=== PATIENT | female | born 1970 | race Caucasian/White ===

== ENCOUNTER 2025-02-05 08:35 | Outpatient (REF) | payer OTHER, SELFPAY ==
--- NOTE | ~2025-02-05 | CT_ITS ---
EXAMINATION: CT ABDOMEN AND PELVIS WITH CONTRAST CLINICAL INFORMATION: Abnormal uterine and vaginal bleeding, unspecified Pyelonephritis COMPARISON: Ultrasound of the kidneys on February 05, 2025. Ultrasound of the pelvis on February 05, 2025. TECHNIQUE: Multidetector volumetric images were obtained from the superior aspect of the liver through the pubic symphysis following administration 85 ml of Omnipaque 350 intravenous contrast. Sagittal and coronal reformatted images were obtained on the technologist's workstation. Oral contrast: No This CT examination was performed using dose optimization techniques as appropriate, variously including the following: *Automated exposure control *Adjustment of mA and/or kV according to patient size (this includes techniques or standardized protocols for targeted exams where dose is matched to indication/reason for exam; i.e. extremities or head) *Use of iterative reconstruction technique FINDINGS: LOWER CHEST: No lung consolidation. No pleural effusion. LIVER: Hepatomegaly measuring 22.7 cm. Diffuse hypodensity compatible with hepatic steatosis. No focal lesions. GALLBLADDER AND BILIARY TREE: No biliary ductal dictation. The gallbladder is unremarkable with no evidence of radiopaque gallstones, gallbladder wall thickening, or obvious pericholecystic inflammatory changes. PANCREAS: Unremarkable. SPLEEN: No splenomegaly. No focal lesions. ADRENAL GLANDS: No nodules. KIDNEYS AND URETERS: No renal stones or focal renal lesions. No hydronephrosis or perinephric stranding. GASTROINTESTINAL TRACT: Small hiatal hernia. Stomach is decompressed. Normal long appendix in the right lower quadrant/lower central abdomen. No bowel distention. PERITONEUM/RETROPERITONEUM: No free fluid or free air. ABDOMINAL WALL: Fat-containing umbilical hernia. LYMPH NODES: No lymphadenopathy. VASCULAR: No abdominal aortic aneurysm. PELVIC VISCERA: Urinary bladder is decompressed, without intravesical stones. Uterus appears unremarkable. Uterine cervix is not well evaluated. Unremarkable appearance of probable bilateral ovaries. OSSEOUS STRUCTURES: No acute or suspicious osseous abnormality. Focal sclerotic and cystic changes in bilateral sacroiliac joints. Degenerative changes along the spine is more prominent at L5-S1. CT/CT abdomen pelvis w IV con IMPRESSION: 1. No acute abnormality in the abdomen/pelvis. 2. No renal stones, hydronephrosis or perirenal fatty stranding on either side. 3. Uterus is not well evaluated on the current examination. 4. Hepatomegaly with hepatic steatosis. Fleischner guidelines were followed. Electronically signed by: Owen Garcia MD 02/05/2025 10:56 AM [facility]
--- NOTE | ~2025-02-05 | US_ITS ---
EXAMINATION: US KIDNEY BILATERAL HISTORY: abn vaginal bleeding, pelvic and perineal pain TECHNIQUE: Real-time grayscale ultrasound imaging of the kidneys was performed and images were reviewed. COMPARISON: There are no prior studies available for comparison. FINDINGS: Right kidney: The right kidney measures 10.3 x 3.7 x 5.7 cm. Renal parenchymal echotexture and thickness are normal. There are no masses. There is no hydronephrosis or renal calculi. Left Kidney: The left kidney measures 11.5 x 6.0 x 5.9 cm. Renal parenchymal echotexture and thickness are normal. There are no masses. There is no hydronephrosis or renal calculi. US/US renal BI IMPRESSION: Unremarkable renal ultrasound. Electronically signed by: Juan Jesus MD 02/05/2025 09:48 AM [facility]
--- NOTE | ~2025-02-05 | US_ITS ---
EXAMINATION: US PELVIS CLINICAL INFORMATION: abn vaginal bleeding, pelvic and perineal pain COMPARISON: None available. TECHNIQUE: Ultrasound of the pelvis is performed using both transabdominal and transvaginal transducers along with Doppler. Transvaginal imaging is performed due to inadequate visualization transabdominally. And abdominal exam is very limited due to empty bladder. FINDINGS: Uterus: The uterus is anteverted and measures 6.6 x 2.8 x 3.8 cm. The double wall endometrial thickness is 2 mm. No endometrial fluid or mass. The uterus is smooth in contour and has normal myometrial echogenicity. No visible fibroid. Heterogeneous appearance to the cervix, question representing heterogeneous fluid in the endocervical canal or cervicitis. Adnexa: Right ovary measures 2.4 x 1.2 x 1.1 cm. Normal Left ovary measures not seen. No pelvic fluid. US/US pelvic and transvaginal IMPRESSION: Limited exam. Normal-appearing uterus and endometrium. Heterogeneous appearance of the cervix/question heterogeneous fluid in the endocervical canal or cervicitis. Correlation with physical exam recommended. Normal right ovary. Left ovary not seen. Electronically signed by: Anny Urbina MD 02/05/2025 10:15 AM EST
--- OUTSIDE RECORDS SUMMARY | 2025-02-05 08:43 | XMS_ITS | Encounter Summary ---
Author Organization [facility] Address [address] [place] [address] Care Team Providers Care Printing Specialist Name Role Phone Balbina Frias APRN Primary Care Provider + [phone] Encounter Details Date Type Department Care Team (Late st Contact Info) Description 04/10/2021 Documentation Encounter [facility] [address] [place] [phone] [place] [address] [place] [address] [id number] Social History Tobacco Use Types Packs/Day Years Used Date Smoking Tobacco: Never Smokeless Tobacco: Never Alcohol Use Standard Drinks/Week Comments Never 0 (1 standard drink = 0.6 oz pur e alcohol) Comments Unknown Sex and Gender Information Value Date Recorded Sex Assigned at Female 03/22/2021 7:01 AM EST Legal Sex Female 5:05 PM EST Gender Identity Female 03/22/2021 7:01 AM EST Sexual Orientation Straight 03/22/2021 7: 01 AM EST documented as of this encounter Plan of Treatment Not on file documented as of this encounter Visit Diagnoses Diagnosis Essential hypertension Unspecified essential hypertension documented in this encounter Care Teams Printing Specialist Relationship Specialty Start Date End Date Balbina Frias APRN [address] [address] [place], [place] [id number] PCP - General Nurse Practitioner 03/20/23 documented as of this encounter
--- OUTSIDE RECORDS SUMMARY | 2025-02-05 08:43 | XMS_ITS | Encounter Summary ---
Author Organization [facility] Address [address] [id number] Care Team Providers Care Smalltalk Developer Name Role Phone Balbina Frias APRN Primary Care Provider + [phone] Encounter Details Date Type Department Care Team (Late st Contact Info) Description 05/09/2023 Prep For Surgery [facility] Med Digestive Disease - [facility] [address] [place] [address] Juju Arias APRN [address] [place] [address] Screening for colon cancer Social History Tobacco Use Types Packs/Day Years Used Date Smoking Tobacco: Never Passive Smoke Exposure: Never Smokeless Tobacco: Never Alcohol Use Standard Drinks/Week Comments Never 0 (1 standard drink = 0.6 oz pur e alcohol) Education Answer Date Recorded What is the highest level of school you have completed or the highest degree you have received? 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
--- OUTSIDE RECORDS SUMMARY | 2025-02-05 08:43 | XMS_ITS | Clinical Summary ---
Author Organization [facility] Address [address] [place] [address] Care Team Providers Care Rental Clerk Name Role Phone FriasBalbina Marck HUGHES Primary Care Provider + [phone] Allergies Active Allergy Reactions Criticality Noted Date Comments Covid-19 (Mrna) Vaccine Delirium,Nausea And Vomiting,Other (See Comments),Palpitations ,Photosensitivity,Seiz ures,Shortness Of Breath High 05/19/2020 Doxycycline Other (See Comments) 03/28/2021 Feeling unwell Fish Allergy Anaphylaxis High 03/28/2021 Peanut Anaphylaxis High 03/28/2021 Medications aspirin 81 MG Oral Tablet Chewable Chew 81 mg daily. Active Ventolin HFA 108 (90 Base) MCG/ACT Inhalation Aerosol SolutionIndication s:Dyspnea, unspecified type Inhale 2 (two) puffs every 6 hours as needed for wheezing or shortness of breath. 8.5 g 1 2 Active sodium chloride (OCEAN) 0.65 % Nasal SolutionIndication s:COVID-19 2 (two) sprays by Nasal route as needed for congestion. 15 mL 2 Active cetirizine (ZyrTEC) 10 MG Oral TabletIndications: COVID-19 Take 1 (one) tablet by mouth daily for 30 days. 30 tablet 2 Active sucralfate (CARAFATE) 1 GM/10ML Oral SuspensionIndicati ons:Midepigastric pain Take 10 mLs by mouth 4 times daily. 420 mL 1 2 Active mometasone (NASONEX) 50 MCG/ACT Nasal SuspensionIndicati ons:COVID-19 SPRAY 2 (TWO) SPRAYS IN EACH NOSTRIL DAILY. 17 g 5 2 Active hydrOXYzine HCl (ATARAX) 25 MG Oral Tablet Take 1 (one) tablet by mouth 3 times daily as needed for itching. 30 tablet 3 Active EPINEPHrine 0.3 MG/0.3ML Injection Solution Auto-injector 1 Active nitroGLYCERIN (NITROSTAT) 0.4 MG Sublingual Tablet SublingualIndicati ons:Chest pain, unspecified type,Angina pectoris,Coronary vasospasm Place 1 (one) tablet under the tongue every 5 minutes as needed for chest pain. 25 tablet 12 4 Active lisinopril (ZESTRIL) 40 MG Oral TabletIndications: Essential hypertension Take 1 (one) tablet by mouth daily. 90 tablet 3 4 Active hydroCHLOROthiazid e (HYDRODIURIL) 25 MG Oral Tablet TAKE 1 TABLET BY MOUTH EVERY DAY 90 tablet 3 4 Active omeprazole (PriLOSEC) 40 MG Oral Capsule Delayed ReleaseIndications :Midepigastric pain TAKE 1 CAPSULE BY MOUTH EVERY DAY 90 capsule 4 4 Active meloxicam (MOBIC) 15 MG Oral TabletIndications: Lumbar back pain with radiculopathy affecting lower extremity Take 1 (one) tablet by mouth daily. MUST BE SEEN BY PROVIDER TO DISCUSS FURTHER REFILLS. 30 tablet 4 Active carvedilol (COREG) 3.125 MG Oral TabletIndications: Myocarditis due to COVID-19 virus TAKE 1 (ONE) TABLET BY MOUTH 2 TIMES DAILY 180 tablet 3 4 Active thyroid (Dexter Thyroid) 30 MG Oral TabletIndications: Other specified hypothyroidism Take 1 (one) tablet by mouth daily. NO FURTHER REFILLS UNTIL SEEN BY PROVIDER. 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 Arthritis of left knee 03/28/2021 Hypothyroidism 10/23/2019 Obesity 10/23/2019 Resolved Problems Problem Noted Date Diagnosed Date Resolved Date Abnormal stress test 04/18/2021 022 Overview (04/18/2021): Added automatically from request for surgery [id number] Immunizations Immunization Administration Dates Next Due ADACEL, BOOSTRIX, Tdap Vacci ne, (7 yo and older), IM (LEN=346) 07/24/2019,10/21/2014 DT vaccine, (less than 7 y.o.) IM (CVX=28) 07/12 Hepatitis B Vaccine (Adult 3 -dose or 11-15YR 2-dose) IM (CVX=43) 06/28/2000 IPOL (6W & OLDER) 0.5 ML IM / SUBCUT VIAL 2000 Family History Medical History Relation Comments Autism Brother Hypertension Brother Kidney Failure Brother Colon Cancer Father Hypertension Father Breast Cancer Maternal Grandmother Hypertension Maternal Grandmother Stroke Mother Breast Cancer Sister Diabetes Sister Hypertension Sister Relation Status Comments Brother Alive Father Alive Maternal Grandmother Mother Sister Alive Social History Tobacco Use Types Packs/Day Years Used Date Smoking Tobacco: Never Passive Smoke Exposure: Never Smokeless Tobacco: Never Tobacco Cessation:Counseling Given: Not Answered Alcohol Use Standard Drinks/Week Comments Never 0 [...] 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 [employer] Not on file Not on f ile Not on file Last Filed Vital Signs Vital Sign Reading Time Taken Comments Blood Pressure 143/67 05/10/2023 3:09 PM EST Pulse 66 05/10/2023 3:09 PM EST Temperature 36 C (96.8 F) 05/10/2023 3:09 PM EST Respiratory Rate 16 01/11/2022 8:43 AM EDT Oxygen Saturation 97% 05/10/2023 3:09 PM EST Inhaled Oxygen Concentration - - Weight 101.2 kg (223 lb) 05/10/2023 3:09 PM EST Pt declined Height 170.2 cm (5' 7 ) 05/10/2023 3:09 PM EST Body Mass Index 34.93 05/10/2023 3:09 PM EST Plan of Treatment Health Maintenance Due Date Last Done Comments CT Colonography 1970 FIT-DNA 1970 FIT-Fecal Immunochemical Test 1970 FOBT-Fecal Occult Blood Test 1970 Hepatitis C Screening 1970 Sigmoidoscopy 1970 [facility] Pap Smear 1991 Hepatitis B Vaccine (2 of 3 - 19+ 3-dose series) 07/26/2000 06/28/2000 Polio Vaccine (2 of 3 - Adult catch-up series) 07/26/2000 06/28/2000 Colon Cancer Screening 2015 Colonoscopy 2015 Pneumococcal Vaccine (50+ yrs) (1 of 1 - PCV) 2020 Zoster Vaccine (1 of 2) 2020 Basic Metabolic Panel 04/18/2024 04/18/2023 , 01/11/2022, 06/05/2021, Additional history exists Lipid Profile 04/18/2024 04/18/2023, 03/30/2021 SARS-CoV-2 (COVID-19) (1 - 2024- season) 2024 Breast Cancer Screening (Mammogram) 06/16/2025 06/17/2023 DTaP,Tdap,and Td Vaccines (4 - Td or Tdap) 07/23/2029 07/24/2019, 10/21/2014, 07/12/2000 HIB Vaccine Aged Out No longer eligi ble based on patient's age to complete this topic HPV Vaccine Aged Out No longer eligi ble based on patient's age to complete this topic Hepatitis A Vaccine Aged Out No longe r eligible based on patient's age to complete this topic Influenza Vaccine Discontinued Meningococcal ACWY Aged Out No longer eligible based on patient's age to complete this topic Meningococcal B Aged Out No longer el igible based on patient's age to complete this topic Rotavirus Vaccine Aged Out No longer eligible based on patient's age to complete this topic Procedures Procedure Name Priority Date/Time Associated Diagnosis Comments CECY SCREENING WITH DONG Routine 06/17/2023 8:59 AM EDT Breast cancer screening by mammogram COMPREHENSIVE METABOLIC PANEL Routine 04/18/2023 12:36 PM EST Essential hypertension LIPID PANEL Routine 04/18/2023 12:36 PM EST Essential hypertension from Last 3 Months or Most Recently Relevant to Health Maintenance Results * CECY Screening with Dong (06/17/2023 8:59 AM EDT) Anatomical Region Laterality Modality Breast N/A Mammography 06/17/2023 10:1 6 AM EDT Impressions 06/17/2023 10:23 AM EDT No mammographic evidence to indicate malignancy. Follow-up of any palpable lesion should be based on clinical grounds regardless of mammographic findings and should not delay intervention for a clinically significant abnormality. BI-RADS: 1. Negative. RECOMMENDATION : Routine screening annual mammogram. Narrative 06/17/2023 10:23 AM EDT HISTORY: Asymptomatic screening study in a 53-year-old female with no personal history of breast cancer. There is a history of a maternal aunt, paternal grandmother, and sister with breast cancer. There is a history of a father with colon cancer. EXAM: [facility] SCREENING WITH DONG. Digital images of both breasts acquired in craniocaudad and oblique mediolateral projections were reviewed with CAD. Tomosynthesis was utilized for this study. C view was utilized. PRIOR STUDY: Exams from 08/09/2010 through 08/21/2017. FINDINGS: Breast parenchyma: Scattered fibroglandular densities There is a stable parenchymal pattern in both breasts. There is no significant interval change. There are no suspicious masses, malignant group of microcalcifications, skin thickening, or architectural distortion in either breast. Олег Brown MD RAD [facility] ORDERABLES Final Re sult * (ABNORMAL) Lipid Panel (04/18/2023 12:36 PM EST) Cholesterol, Total 207(H) 165 - 199 MG/DL 04/18/2023 3:28 PM EST [facility] Comment: Reference Range Summary Desirable: <200 Borderline elevated: 200-239 Elevated: =>240 Triglycerides 68 55 - 149 MG/DL 04/18/2023 3:28 PM EST [facility] Comment: Reference Range Summary Normal: <150 Borderline high: 150-199 High: 200-499 Very high: =>500 HDL 65(H) 40 - <60 MG/DL 04/18/2023 3:28 PM EST [facility] Comment: Reference Range Summary Low: <40 Acceptable: 40-59 High: =>60 LDL Calculated 130 MG/DL 04/18/2023 3:28 PM EST [facility] NON-HDL Cholesterol 142 MG/DL(CALC ) 04/18/2023 3:28 PM EST [facility] Comment: Reference Range Summary Desirable: less than 130 High: 160 to 189 Very high: greater than or equal to 190 Blood Venipuncture / Unknown 04/18/2023 12:36 PM EST 04/18/2023 12:36 PM EST us Balbina Frias MOLD INJECTOR BLOOD ORDERABLES Final Resul t [facility] [address] [place] [address] * (ABNORMAL) Comprehensive Metabolic Panel (04/18/2023 12:36 PM EST) Sodium 139 136 - 145 MMOL/L 04/18/2023 3:28 PM EST [facility] Potassium 4.1 3.3 - 5.1 MMOL/L 04/18/2023 3:28 PM EST [facility] Chloride 100 98 - 107 MMOL/L 04/18/2023 3:28 PM EST [facility] CO2 28 22 - 30 MMOL/L 04/18/2023 3:28 PM EST [facility] Urea Nitrogen 9 6 - 21 MG/DL 04/18/2023 3:28 PM EST [facility] Creatinine 1.17(H) 0.38 - 1.02 mg/dL 04/18/2023 3:28 PM EST [facility] BUN/Creatinine Ratio 7.7 (CALC) 04/18/2023 3:28 PM EST [facility] Glucose 81 65 - 99 MG/DL 04/18/2023 3:28 PM EST [facility] Calcium 10.1 8.4 - 10.2 MG/DL 04/18/2023 3:28 PM EST [facility] Total Protein 8.5(H) 6.4 - 8.3 G/DL 04/18/2023 3:28 PM EST [facility] Albumin 4.4 3.5 - 5.2 G/DL 04/18/2023 3:28 PM EST [facility] Calc Total Globulin 4.1 G/DL 04/18/2023 3:28 PM EST [facility] Albumin/Globulin Ratio 1.1 (CALC) 04/18/2023 3:28 PM EST [facility] Total Bilirubin 0.5 0.0 - 1.0 MG/DL 04/18/2023 3:28 PM EST [facility] Alkaline Phosphatase 64 33 - 133 IU/L 04/18/2023 3:28 PM EST [facility] AST 24 0 - 37 IU/L 04/18/2023 3:28 PM EST [facility] ALT 10 0 - 35 IU/L 04/18/2023 3:28 PM EST [facility] Anion Gap 11 8 - 16 MMOL/L 04/18/2023 3:28 PM EST [facility] EGFR (CKD-EPI) 56(L) >=60 ML/MIN/1. 73M2 04/18/2023 3:28 PM EST [facility] Comment:Calculation based on the Chronic Kidney Disease Epidemiology Collaboration (CKD-EPI) equation refit without adjustment for race Blood Venipuncture / Unknown 04/18/2023 12:36 PM EST 04/18/2023 12:36 PM EST us Balbina Frias MOLD INJECTOR BLOOD ORDERABLES Final Resul t [facility] [address] [place] [address] from Last 3 Months or Most Recently Relevant to Health Maintenance Insurance [employer] HMO/POS Care Teams Rental Clerk Relationship Specialty Start Date End Date Balbina Frias APRN [address] [place] [address] PCP - General Nurse Practitioner 03/20/23
--- OUTSIDE RECORDS SUMMARY | 2025-02-05 08:43 | XMS_ITS | Clinical Summary ---
Author Organization [facility] Address [facility] Domains Income [facility] [address] [place], [place] [id number] Phone Care Team Providers Care Spray Unit Feeder Name Role Phone Pcp, Unknown Primary Care Provider Unavailabl e Encounters Date Type Department Care Team Description 01/13/2025 1:19 PM EDT - 01/13/2025 11:59 PM EDT Hospital Encounter [facility] [address] [place] [address] Laine Arreola PA Discharge Disposition: Home or Self Care 01/13/2025 Transcribe Orders [facility] [address] [place] [address] Laine Arreola PA Abnormal electrocardiogram (Primary Dx) 01/13/2025 Transcribe Orders [facility] [address] [place] [address] Laine Arreola PA from Last 3 Months Social History Tobacco Use Types Packs/Day Years Used Date Smoking Tobacco: Never Assessed Education Answer Date Recorded Are you interested in more education? Not on brennan e 01/13/2025 Are you concerned about learning? Not on file 01/13/2025 No 01/13/2025 No 01/13/2025 Digital Access Answer Date Recorded No 01/13/2025 No 01/13/2025 Reliable internet access at home? Not on file 01/13/2025 Device with a working camera? Not on file Comments Unknown Sex and Gender Information Value Date Recorded Sex Assigned at Not on file Legal Sex Female 1:14 PM EDT Gender Identity Not on file Sexual Orientation Not on file Plan of Treatment Not on file Medical Devices Not on file Procedures Procedure Name Priority Date/Time Associated Diagnosis Comments TROPONIN Routine 01/13/2025 1:56 PM EDT Abnormal electrocardiogram from Last 3 Months Results * Troponin (01/13/2025 1:56 PM EDT) Troponin-T, HS Gen5 <6 0 - 9 ng/L [facility] Blood 01/13/2025 1:56 PM EDT 01/13/2025 2:03 PM EDT us Laine [facility]KR ORDERABLES Final Result [facility] [address] [place] [address] from Last 3 Months Insurance [email or web address] PLUS PPO [employer] PLUS PPO [employer] PLUS PPO [employer] PL[employer] PPO [employer] PLUS PPO PLUS PPO Care Teams Spray Unit Feeder Relationship Specialty Start Date End Date Pcp, Unknown PCP - General 01/13/25 Additional Source Comments The information contained in this document represents components of the legal health record. It is not the complete legal health record.[facility]
--- OUTSIDE RECORDS SUMMARY | 2025-02-05 08:43 | XMS_ITS | Encounter Summary ---
Author Organization [facility] Address [address] [place] [address] Care Team Providers Care Strength And Conditioning Coach Name Role Phone Balbina Frias APRN Primary Care Provider + [phone] Encounter Details Date Type Department Care Team (Late st Contact Info) Description 04/18/2021 Prep For Surgery [facility] Cardiology - [place] [address] [place] [address] Tricia Tenorio MD [address] [place] [address] Abnormal stress test Social History Tobacco Use Types Packs/Day Years [...] on file documented as of this encounter Procedures Procedure Name Priority Date/Time Associated Diagnosis Comments CBC AUTODIFF Routine 04/28/2021 3:46 PM EST Abnormal stress test CBC AND DIFFERENTIAL Routine 04/28/2021 3:46 PM EST Abnormal stress test BASIC METABOLIC PANEL Routine 04/28/2021 3:46 PM EST Abnormal stress test documented in this encounter Results * (ABNORMAL) CBC with Differential panel result (04/28/2021 3:46 PM EST) Pathologist [facility] WBC 9.1 4.0 - 10.0 THOU/CUMM 04/28/2021 6:52 PM EST [facility] RBC 4.64 4.00 - 5.20 X10E6/UL 04/28/2021 6:52 PM EST [facility] Hemoglobin 12.9 12.0 - 16.0 G/DL 04/28/2021 6:52 PM EST [facility] Hematocrit 38.6 35.0 - 45.0 % 04/28/2021 6:52 PM EST [facility] MCV 83.2 78.0 - 100.0 FL 6:52 PM EST [facility] MCH 27.7 26.0 - 34.0 PG 04/28/2021 6:52 PM EST [facility] MCHC 33.3 31.0 - 37.0 G/DL 04/28/2021 6:52 PM EST [facility] RDW 14.2(H) 11.0 - 14.0 % 04/28/2021 6:52 PM EST [facility] Platelet Count 246 150 - 450 THOU/CUMM 04/28/2021 6:52 PM EST [facility] MPV 7.9 6.0 - 10.0 FL 04/28/2021 6:52 PM EST [facility] Neutrophils % 60.0 40.0 - 80.0 % 04/28/19 6:52 PM EST [facility] Lymphs % 30.3 20.0 - 45.0 % 04/28/2021 6:52 PM EST [facility] Monocytes % 7.5 2.0 - 10.0 % 04/28/2021 6:52 PM EST [facility] Eos % 1.8 0.0 - 8.0 % 04/28/2021 6:52 PM EST [facility] Basos % 0.4 0.0 - 2.0 % 04/28/2021 6:52 PM EST [facility] Neutrophils Absolute 5.40 1.70 - 7.00 THOU/CUMM 04/28/2021 6:52 PM EST [facility] Lymphocytes Absolute 2.70 1.00 - 3.20 X10E3/UL 04/28/2021 6:52 PM EST [facility] Monocytes Absolute 0.70 0.20 - 0.70 X10E3/UL 04/28/2021 6:52 PM EST [facility] Eosinophils Absolute 0.20 0.03 - 0.46 THOU/CUMM 04/28/2021 6:52 PM EST [facility] Basophil Absolute 0.00(L) 0.02 - 0.09 X10E3/UL 04/28/2021 6:52 PM EST [facility] Absolute NRBC Count 0.00 Not Established 10*9/L 04/28/2021 6:52 PM EST [facility] NRBC % 0.0 Not Established % 04/28/2021 6:52 PM EST [facility] Blood Venipuncture / Unknown 04/28/2021 3:46 PM EST 04/28/2021 3:47 PM EST us Babak Narvaez PA-C BLOOD ORDERABLES Final Resu lt [facility] [address] [id number] * (ABNORMAL) Basic Metabolic Panel (04/28/2021 3:46 PM EST) Sodium 139 136 - 145 MMOL/L 04/28/2021 6:30 PM EST [facility] Potassium 3.9 3.3 - 5.3 MMOL/L 04/28/2021 6:30 PM EST [facility] Chloride 101 98 - 107 MMOL/L 04/28/2021 6:30 PM EST [facility] CO2 28 22 - 30 MMOL/L 04/28/2021 6:30 PM EST [facility] Urea Nitrogen 15 6 - 21 MG/DL 04/28/2021 6:30 PM EST [facility] Creatinine 1.22(H) 0.38 - 1.02 MG/DL 04/28/2021 6:30 PM EST [facility] BUN/Creatinine Ratio 12.3 6.0 - 22.0 (CALC) 04/28/2021 6:30 PM EST [facility] Glucose 80 65 - 99 MG/DL 04/28/2021 6:30 PM EST [facility] Calcium 10.3(H) 8.4 - 10.2 MG/DL 04/28/2021 6:30 PM EST [facility] Anion Gap 10 MMOL/L 04/28/2021 6:30 PM EST [facility] EGFR 56(L) >=59 ML/MIN/1.7 3M2 04/28/2021 6:30 PM EST [facility] Comment: Reference range: =>90 ml/min/1.73M2 Stage 3 Chronic Kidney Disease (30-59) Stage 4 Chronic Kidney Disease (15-29) Stage 5 or Renal Failure (<15) Blood Venipuncture / Unknown 04/28/2021 3:46 PM EST 04/28/2021 3:47 PM EST us Babak Narvaez PA-C BLOOD ORDERABLES Final Resu lt [facility] [address] [id number] documented in this encounter Visit Diagnoses Diagnosis Abnormal stress test Other nonspecific abnormal cardiovascular system function study documented in this encounter Care Teams Strength And Conditioning Coach Relationship Specialty Start Date End Date Balbina Frias APRN [address] [place] [address] PCP - General Nurse Practitioner 03/20/23 documented as of this encounter
--- OUTSIDE RECORDS SUMMARY | 2025-02-05 08:43 | XMS_ITS | Encounter Summary ---
Author Organization [facility] Address [address] [place] [address] Care Team Providers Care Advance Agent Name Role Phone Balbina Frias APRN Primary Care Provider + [phone] Reason for Referral * Laboratory Services - Closed Specialty Diagnoses / Procedures Referred By Contac t Referred To Contact Diagnoses Angina pectoris Procedures CORONAVIRUS COVID-19 BY Tricia Schaeffer MD [address] [place] [address] [place] [address] Phone: tel: fax: Referral ID Status Reason Start Date Expiration Date Visits Re quested Visits Authorized [id number] Closed 06/02/2021 06/02/2022 1 1 Encounter Details Date Type Department Care Team (Late st Contact Info) Description 05/29/2021 Prep For Surgery [facility] Cardiology - [place] [address] [place], [place] [address], [address] [place] [address] Tricia Tenorio MD [address] [place], [place] [id number] Angina pectoris (CMS-HCC: 88) Social History Tobacco Use Types Packs/Day Years Used Date Smoking Tobacco: Never Smokeless Tobacco: Never Alcohol Use Standard Drinks/Week Comments Never 0 (1 standard drink = 0.6 oz pur e alcohol) Comments No Sex and Gender Information Value [...] Date/Time Associated Diagnosis Comments CBC AUTODIFF Routine 06/05/2021 8:57 AM EDT Angina pectoris ([facility]-HCC: 88) CBC AND DIFFERENTIAL Routine 06/05/2021 8:57 AM EDT Angina pectoris (CMS-HCC: 88) BASIC METABOLIC PANEL Routine 06/05/2021 8:57 AM EDT Angina pectoris ([facility]-HCC: 88) documented in this encounter Results * (ABNORMAL) CBC with Differential panel result (06/05/2021 8:57 AM EDT) WBC 8.1 4.0 - 10.0 THOU/CUMM 06/05/2021 3:41 PM EDT [facility] RBC 4.60 4.00 - 5.20 X10E6/UL 06/05/2021 3:41 PM EDT [facility] Hemoglobin 12.7 12.0 - 16.0 G/DL 06/05/2021 3:41 PM EDT [facility] Hematocrit 38.6 35.0 - 45.0 % 06/05/2021 3:41 PM EDT [facility] MCV 84.0 78.0 - 100.0 FL 3:41 PM EDT [facility] MCH 27.7 26.0 - 34.0 PG 06/05/2021 3:41 PM EDT [facility] MCHC 33.0 31.0 - 37.0 G/DL 06/05/2021 3:41 PM EDT [facility] RDW 14.9(H) 11.0 - 14.0 % 06/05/2021 3:41 PM EDT [facility] Platelet Count 222 150 - 450 THOU/CUMM 06/05/2021 3:41 PM EDT [facility] MPV 8.4 6.0 - 10.0 FL 06/05/2021 3:41 PM EDT [facility] Neutrophils % 65.4 40.0 - 80.0 % 06/06/19 3:41 PM EDT [facility] Lymphs % 25.3 20.0 - 45.0 % 06/05/2021 3:41 PM EDT [facility] Monocytes % 7.0 2.0 - 10.0 % 06/05/2021 3:41 PM EDT [facility] Eos % 1.8 0.0 - 8.0 % 06/05/2021 3:41 PM EDT [facility] Basos % 0.5 0.0 - 2.0 % 06/05/2021 3:41 PM EDT [facility] Neutrophils Absolute 5.30 1.70 - 7.00 THOU/CUMM 06/05/2021 3:41 PM EDT [facility] Lymphocytes Absolute 2.10 1.00 - 3.20 X10E3/UL 06/05/2021 3:41 PM EDT [facility] Monocytes Absolute 0.60 0.20 - 0.70 X10E3/UL 06/05/2021 3:41 PM EDT [facility] Eosinophils Absolute 0.10 0.03 - 0.46 THOU/CUMM 06/05/2021 3:41 PM EDT [facility] Basophil Absolute 0.00(L) 0.02 - 0.09 X10E3/UL 06/05/2021 3:41 PM EDT [facility] Absolute NRBC Count 0.00 Not Established 10*9/L 06/05/2021 3:41 PM EDT [facility] NRBC % 0.0 Not Established % 06/05/2021 3:41 PM EDT [facility] Blood 06/05/2021 8:57 AM EDT 06/05/2021 8:58 AM EDT us Tricia Tenorio MD BLOOD ORDERABLES Final Resu lt [facility] [address] [place] [address] * (ABNORMAL) Basic Metabolic Panel (06/05/2021 8:57 AM EDT) Sodium 140 136 - 145 MMOL/L 06/05/2021 3:31 PM EDT [facility] Potassium 3.8 3.3 - 5.3 MMOL/L 06/05/2021 3:31 PM EDT [facility] Chloride 103 98 - 107 MMOL/L 06/05/2021 3:31 PM EDT [facility] CO2 29 22 - 30 MMOL/L 06/05/2021 3:31 PM EDT [facility] Urea Nitrogen 18 6 - 21 MG/DL 06/05/2021 3:31 PM EDT [facility] Creatinine 1.21(H) 0.38 - 1.02 MG/DL 06/05/2021 3:31 PM EDT [facility] BUN/Creatinine Ratio 14.9 6.0 - 22.0 (CALC) 06/05/2021 3:31 PM EDT [facility] Glucose 99 65 - 99 MG/DL 06/05/2021 3:31 PM EDT [facility] Calcium 9.8 8.4 - 10.2 MG/DL 06/05/2021 3:31 PM EDT [facility] Anion Gap 8 MMOL/L 06/05/2021 3:31 PM EDT [facility] EGFR (CKD-EPI) 54(L) >=59 ML/MIN/1. 73M2 06/05/2021 3:31 PM EDT [facility] Comment:Calculation based on the Chronic Kidney Disease Epidemiology Collaboration (CKD-EPI) equation refit without adjustment for race Blood 06/05/2021 8:57 AM EDT 06/05/2021 8:58 AM EDT us Tricia Tenorio MD BLOOD ORDERABLES Final Resu lt [facility] [address] [address] * CORONAVIRUS COVID-19 BY KESHAV (06/02/2021 4:04 PM EDT) SARS-CoV-2, KESHAV Not Detected Not Detected [facility] PANTHER 2 06/02/2021 11:22 PM EDT [facility] Saliva MOUTH REGION STRUCTURE / Unknown Collection / Unknown 06/02/2021 4:04 PM EDT 06/02/2021 5:28 PM EDT Narrative [facility] - 06/02/2021 11:22 PM EDT The Aptima SARS-CoV-2 assay is a nucleic acid amplification in vitro diagnostic test (as sensitive as PCR) intended for the qualitative detection of RNA from SARS-CoV-2 isolated and purified from nasopharyngeal ([employer]), nasal, mid-turbinate and oropharyngeal (OP) swab specimens, nasopharyngeal wash/ aspirate or nasal aspirates obtained from individuals meeting COVID-19 clinical and/or epidemiological criteria. Saliva samples have also been validated using this method however, sensitivity may be reduced as compared to other collection sites. The SARS-CoV-2 RNA is generally detectable in saliva specimens during the acute phase of infection. The Aptima SARS-CoV-2 assay is for use only under Emergency Use Authorization (EUA) in the [place] laboratories certified under the Clinical Laboratory Improvement Amendments of 1988 (CLIA), 42 U.S.C. 263a, to perform high complexity tests. Results are for the identification of SARS-CoV-2 RNA. The SARS-CoV-2 RNA is generally detectable in upper respiratory specimens during the acute phase of infection. Positive results are indicative of the presence of SARS-CoV-2 RNA, clinical correlation with patient history and other diagnostic information is necessary to determine patient infection status. Positive results do not rule out bacterial infection or co-infection with other viruses. Negative results do not preclude SARS-CoV-2 infection and should not be used as the sole basis for patient management decisions. Negative results must be combined with clinical observations, patient history, and epidemiological information. The results of this test are not intended to be used as the sole means for clinical diagnosis and/ or patient management decisions. [facility] is authorized under Clinical Laboratory Improvement Amendments (CLIA) to perform high-complexity testing. [facility] [place] [address]. us Tricia Tenorio MD MICROBIOLOGY - GENERAL ORDE SRIDHAR Final Result [facility] [address], [place] [address] documented in this encounter Visit Diagnoses Diagnosis Angina pectoris Other and unspecified angina pectoris documented in this encounter Care Teams Advance Agent Relationship Specialty Start Date End Date Balbina Frias, VP [employer] [address], [place] [address] PCP - General Nurse Practitioner 03/20/23 documented as of this encounter
[2025-02-05] MEDS: iohexoL 350 MG/ML 100 ML INFUS..BTL 85 ML IV (10:30)
[2025-02-08 17:14] LABS: Creatinine POC 0.9 mg/dL (0.5-1.4); GFR POC > 60
== END 2025-02-05 08:36 | disposition home or self-care (01) ==
LOC: HO.US 08:35
PROVIDERS: PCP Family Medicine; Visit Provider Family Medicine
DX: N10 Acute pyelonephritis (principal); N93.9 Abnormal uterine and vaginal bleeding, unspecified; R10.23 Pelvic and perineal pain bilateral
CPT/HCPCS: 74177; 76775; 76830; 76856; 82565; Q9967

== ENCOUNTER → 2025-02-05 09:34 | Outpatient (BNV) | payer OTHER, SELFPAY | PROVIDERS: PCP Family Medicine; Visit Provider Radiology Diagnostic Radiology | DX: N93.9 Abnormal uterine and vaginal bleeding, unspecified (principal); K76.0 Fatty (change of) liver, not elsewhere classified; R16.0 Hepatomegaly, not elsewhere classified; R10.20 Pelvic and perineal pain unspecified side | CPT/HCPCS: 74177; 76775; 76830; 76856 ==